=== PATIENT | female | born 1980 | race Caucasian/White ===

== ENCOUNTER 2016-04-16 14:35 | Outpatient (RCR) | payer OTHER ==
[~2016-04-16 14:35] MED LIST: FIORICET 325 MG1 TA1 PO; NORCO 325 MG-51 TAB PO; PROTONIX 40MG T40 MG PO; ZOFRAN 4MG T4 MG/TAB PO
== END 2016-06-23 ==
LOC: WSOH
DX: S39.012A Strain of muscle, fascia and tendon of lower back, initial encounter (principal); Y99.0 Civilian activity done for income or pay